=== PATIENT | male | born 1985 | race Two or more races ===

== ENCOUNTER 2023-05-20 11:58 | Emergency (ER) | payer OTHER ==
[~2023-05-20] VITALS: Ht 172.7 cm; Wt 105.0 kg
[2023-05-20 13:16] VITALS: BP 106/62; PULSE 73; RESP 18; TEMP 97.6; O2SAT 98
[2023-05-20] MEDS ORDERED: METH-1181 PO (14:05)
== END 2023-05-20 14:11 | disposition home or self-care (01) ==
LOC: ER 11:58
DX: S86.912A Strain of unspecified muscle(s) and tendon(s) at lower leg level, left leg, initial encounter (principal); S86.911A Strain of unspecified muscle(s) and tendon(s) at lower leg level, right leg, initial encounter; X58.XXXA Exposure to other specified factors, initial encounter; Y93.89 Activity, other specified; Y92.89 Other specified places as the place of occurrence of the external cause; Y99.8 Other external cause status